=== PATIENT | female | born 1990 | race American Indian/Alaskan Native ===

== ENCOUNTER 2016-12-14 18:26 | Outpatient (CLI) | payer MEDICAID ==
[2016-12-14 19:41] VITALS: BP 106/70
== END 2016-12-14 20:28 | disposition home or self-care (01) ==
LOC: TRG 18:26
PROVIDERS: ATTEND Obstetrics & Gynecology
DX: O47.1 False labor at or after 37 completed weeks of gestation (principal); Z3A.37 37 weeks gestation of pregnancy
CPT/HCPCS: 59025